=== PATIENT | male | born 1955 | race Caucasian/White ===

== ENCOUNTER → 2023-03-24 06:26 | Day surgery (SDC) | payer OTHER, SELFPAY | LOC: GI 06:26 | PROVIDERS: ATTENDING PHYSICIAN Specialist; FAMILY PHYSICIAN Family Medicine | DX: Z12.11 Encounter for screening for malignant neoplasm of colon (principal); K63.5 Polyp of colon; K57.30 Diverticulosis of large intestine without perforation or abscess without bleeding; K56.2 Volvulus; Z86.010 Personal history of colon polyps | CPT/HCPCS: 45380; 88305 ==

== ENCOUNTER 2024-09-04 06:14 | Day surgery (SDC) | payer OTHER, SELFPAY ==
[2024-08-26 11:28] LABS: Hematocrit 42.2 % (39.0-52.0); Hemoglobin 14.0 g/dL (13.0-18.0); Mean Corp Hgb Conc. 33.2 g/dL (33.0-37.0); Mean Corpuscular Volume 87.7 fL (80.0-94.0); Platelet Count 275 10^3/uL (130-400); Red Cell Dist. Width 12.9 % (11.5-14.5)
[2024-08-26 13:55] LABS: Blood Urea Nitrogen 20 mg/dl (9-20); Calcium 9.5 mg/dl (8.4-10.2); Carbon Dioxide 25 mmol/L (22-30); Chloride 107 mmol/L (98-107); Glucose 97 mg/dl (70-99); Potassium 3.9 mmol/L (3.5-5.1); Sodium 139 mmol/L (135-145); eGFR > 60.00
[2024-08-26 13:59] VITALS: BMI 31.1
[2024-09-04] VITALS (13 sets, daily range): BP systolic 103–154; BP diastolic 45–86; BMI 31.1
[2024-09-04] MEDS: TYLENOL 1000 MG PO (07:04)
[2024-09-04] MEDS: NORMOSOL-R/PLASMALYTE-A 1000 IV (07:05)
[2024-09-04] MEDS: FLOMAX 0.4 MG PO (14:55)
== END 2024-09-04 15:38 | disposition home or self-care (01) ==
LOC: SDS 06:14
PROVIDERS: ATTENDING PHYSICIAN Surgery; FAMILY PHYSICIAN Family Medicine
DX: K40.20 Bilateral inguinal hernia, without obstruction or gangrene, not specified as recurrent (principal); K42.0 Umbilical hernia with obstruction, without gangrene; K41.90 Unilateral femoral hernia, without obstruction or gangrene, not specified as recurrent
CPT/HCPCS: 49650; 49550; 49592; 36415; 80048; 85027; 93005; C1781